=== PATIENT | female | born 1970 | race Hispanic/Latino ===

== ENCOUNTER 2017-06-24 14:44 | Emergency (ER) | payer MEDICAID, OTHER ==
[~2017-06-24 14:44] MED LIST: METR500T PO
== END 2017-06-24 15:44 | disposition home or self-care (01) ==
LOC: EDH 14:44
DX: J30.9 Allergic rhinitis, unspecified (principal); J02.9 Acute pharyngitis, unspecified

== ENCOUNTER 2017-10-10 13:19 | Emergency (ER) | payer MEDICAID, OTHER | END 2017-10-10 14:26 | disposition home or self-care (01) | LOC: EDH 13:19 | DX: L02.211 Cutaneous abscess of abdominal wall (principal); Z98.51 Tubal ligation status ==

== ENCOUNTER 2021-07-07 21:02 | Emergency (ER) | payer MEDICAID, OTHER ==
[2021-07-07 21:06] VITALS: BP 142/92
[2021-07-07] MEDS ORDERED: MECLIZINE HCL 25 MG TABLET PO ONE (21:30)
[2021-07-07 21:59] LABS: APPEARANCE,URINE CLEAR (CLEAR); BILIRUBIN,URINE NEGATIVE (NEGATIVE); COLOR,URINE STRAW (YELLOW); GLUCOSE, URINE (UA) NEGATIVE (NEGATIVE); KETONES,URINE NEGATIVE (NEGATIVE); LEUKOCYTE ESTERASE ,URINE TRACE (NEGATIVE); NITRATE,URINE NEGATIVE (NEGATIVE); OCCULT BLOOD,URINE NEGATIVE (NEGATIVE); PROTEIN,URINE NEGATIVE (NEGATIVE); UROBILINOGEN,URINE 0.2 mg/dL (0.2-1.0)
[2021-07-07 22:01] LABS: BASOPHILS % (AUTO) 0.9 % (0.0-5.0); EOSINOPHILS % (AUTO) 2.7 % (0.0-8.0); HEMATOCRIT 37.7 % (36-48); LYMPHOCYTES % (AUTO) 24.9 % (21.0-51.0); MEAN CORPUSCULAR HEMOGLOBIN 32.3 pg (27.0-33.0); MEAN CORPUSCULAR VOLUME 95.2 fL (79-99); MONOCYTES % (AUTO) 7.4 % (3.0-13.0); NEUTROPHILS % (AUTO) 63.8 % (40.0-77.0); PLATELET COUNT (AUTO) 231 K/uL (130-400); RED BLOOD CELL COUNT(AUTO) 3.96 MIL/uL (4.00-5.50); RED CELL DISTRIBUTION WIDTH 12.6 % (11.0-15.5); WHITE BLOOD COUNT (AUTO) 7.8 K/uL (4.8-10.8)
[2021-07-07 22:02] LABS: HCG,QUAL RESULT NEGATIVE (NEGATIVE)
[2021-07-07 22:06] LABS: BACTERIA,URINE Rare /HPF (None Seen); RBC,URINE 0-1 /HPF (0-1); SQUAMOUS EPITHELIAL CELL,UR Rare /HPF (0-2); WBC,URINE 0-1 /HPF (0-1)
[2021-07-07 22:25] LABS: CREATININE 0.8 mg/dL (0.5-1.5); POTASSIUM 3.8 mmol/L (3.5-5.1)
[2021-07-07 22:30] LABS: BILIRUBIN,TOTAL 0.3 mg/dL (0.2-1.0); TOTAL PROTEIN, SERUM 8.2 g/dL (6.0-8.3)
[2021-07-07] MEDS ORDERED: MECL-226 PO (22:49)
== END 2021-07-07 23:00 | disposition home or self-care (01) ==
LOC: EDH 21:02
DX: B34.9 Viral infection, unspecified (principal); R42 Dizziness and giddiness; Z90.49 Acquired absence of other specified parts of digestive tract
CPT/HCPCS: 36415; 71045; 80053; 81001; 81025; 84484; 85025

== ENCOUNTER 2021-07-13 14:45 | Emergency (ER) | payer OTHER ==
[~2021-07-13] VITALS: Ht 160 cm; Wt 49.9 kg
[~2021-07-13 14:45] MED LIST changes: +MECL-226 PO
[2021-07-13] MEDS ORDERED: LACTATED RINGERS 1000ML 2,000 ML IV ONE (15:00)
[2021-07-13] MEDS ORDERED: LACTATED RINGERS 1000ML 1,000 ML IV ONE ×2 (15:00→15:30)
[2021-07-13] MEDS ORDERED: MECLIZINE HCL 25 MG TABLET ONE (15:00)
[2021-07-13] MEDS ORDERED: MECLIZINE HCL 25 MG TABLET PO ONE (15:00)
[2021-07-13 15:14] LABS: EOSINOPHILS % (AUTO) 2.8 % (0.0-8.0); HEMATOCRIT 44.3 % (36-48); LYMPHOCYTES % (AUTO) 32.7 % (21.0-51.0); MEAN CORPUSCULAR HEMOGLOBIN 31.9 pg (27.0-33.0); MEAN CORPUSCULAR HGB CONC 33.4 g/dL (32.0-36.0); MEAN CORPUSCULAR VOLUME 95.5 fL (79-99); MONOCYTES % (AUTO) 8.7 % (3.0-13.0); NEUTROPHILS % (AUTO) 54.4 % (40.0-77.0); PLATELET COUNT (AUTO) 288 K/uL (130-400); RED BLOOD CELL COUNT(AUTO) 4.64 MIL/uL (4.00-5.50); RED CELL DISTRIBUTION WIDTH 12.5 % (11.0-15.5)
[2021-07-13 15:21] LABS: APPEARANCE,URINE Clear (CLEAR); BILIRUBIN,URINE Negative (NEGATIVE); COLOR,URINE Yellow (YELLOW); GLUCOSE, URINE (UA) Negative (NEGATIVE); KETONES,URINE Negative (NEGATIVE); LEUKOCYTE ESTERASE ,URINE Negative (NEGATIVE); NITRATE,URINE Negative (NEGATIVE); OCCULT BLOOD,URINE Negative (NEGATIVE); PROTEIN,URINE Negative (NEGATIVE); UROBILINOGEN,URINE 0.2 mg/dL (0.2-1.0)
[2021-07-13 15:33] LABS: CREATININE 0.8 mg/dL (0.5-1.5); POTASSIUM 4.1 mmol/L (3.5-5.1)
[2021-07-13 15:43] LABS: ALBUMIN 4.5 g/dL (3.5-5.0); BILIRUBIN,TOTAL 0.4 mg/dL (0.2-1.0); TOTAL PROTEIN, SERUM 9.4 g/dL (6.0-8.3)
[2021-07-13 16:23] VITALS: BP 114/71
[2021-07-13] MEDS ORDERED: MECL-226 PO (17:02)
== END 2021-07-13 17:16 | disposition home or self-care (01) ==
LOC: EDH 14:45
DX: I95.1 Orthostatic hypotension (principal); R42 Dizziness and giddiness; Z90.49 Acquired absence of other specified parts of digestive tract
CPT/HCPCS: 36415; 80053; 81003; 81025; 84484; 85025; 93005; 96360; 99284; J7120

== ENCOUNTER 2021-11-06 05:19 | Emergency (ER) | payer MEDICAID, OTHER ==
[~2021-11-06] VITALS: Ht 152.4 cm; Wt 48.5 kg
[2021-11-06 06:00] LABS: APPEARANCE,URINE CLEAR (CLEAR); BILIRUBIN,URINE NEGATIVE (NEGATIVE); COLOR,URINE YELLOW (YELLOW); GLUCOSE, URINE (UA) NEGATIVE (NEGATIVE); KETONES,URINE NEGATIVE (NEGATIVE); LEUKOCYTE ESTERASE ,URINE NEGATIVE (NEGATIVE); NITRATE,URINE NEGATIVE (NEGATIVE); OCCULT BLOOD,URINE TRACE-INTACT (NEGATIVE); PROTEIN,URINE NEGATIVE (NEGATIVE); UROBILINOGEN,URINE 0.2 mg/dL (0.2-1.0)
[2021-11-06 06:06] LABS: BACTERIA,URINE Rare /HPF (None Seen); RBC,URINE 0-1 /HPF (0-1); WBC,URINE None Seen /HPF (0-1)
[2021-11-06 06:07] LABS: SQUAMOUS EPITHELIAL CELL,UR None Seen /HPF (0-2)
[2021-11-06] MEDS ORDERED: IBUP-2070 PO (06:33)
[2021-11-06 06:44] VITALS: BP 134/74
[2021-11-06] MEDS ORDERED: KETOROLAC 15MG/ML VIAL (15MG/ML) IV ONE (07:00)
== END 2021-11-06 06:55 | disposition home or self-care (01) ==
LOC: EDH 05:19
DX: B34.9 Viral infection, unspecified (principal); R50.9 Fever, unspecified; Z20.822 Contact with and (suspected) exposure to COVID-19; Z90.89 Acquired absence of other organs; Z79.899 Other long term (current) drug therapy
CPT/HCPCS: 81001; 87635; 87804 ×2; 99283; C9803

== ENCOUNTER 2023-04-09 19:50 | Emergency (ER) | payer MEDICAID, OTHER ==
[~2023-04-09] VITALS: Ht 160 cm; Wt 49.4 kg
[~2023-04-09 19:50] MED LIST changes: +IBUP-2070 PO
[2023-04-09 20:46] LABS: SARS-CoV-2, RNA, NAAT POSITIVE SARS CoV-2 (NEGATIVE)
[2023-04-09] MEDS ORDERED: PRED20TA3 PO (20:48)
[2023-04-09] MEDS ORDERED: IBUP-1493 PO (20:48)
[2023-04-09 20:55] LABS: INFLUENZA TYPE A Negative For Type A (NEGATIVE); INFLUENZA TYPE B Negative For Type B (NEGATIVE)
[2023-04-09 21:02] VITALS: BP 142/78; PULSE 78; RESP 18; O2SAT 97
== END 2023-04-09 21:20 | disposition home or self-care (01) ==
LOC: EDH 19:50
DX: U07.1 COVID-19 (principal); Z79.899 Other long term (current) drug therapy; Z90.49 Acquired absence of other specified parts of digestive tract
CPT/HCPCS: 99283; 87635; 87804 ×2; C9803

== ENCOUNTER 2023-04-19 19:27 | Emergency (ER) | payer OTHER ==
[~2023-04-19 19:27] MED LIST changes: +IBUP-1493 PO; -IBUP-2070 PO; -MECL-226 PO; -METR500T PO; +PRED20TA3 PO
[2023-04-19] MEDS ORDERED: METOCLOPRAMIDE 10 MG/2 ML VIAL IVP ONE (20:00)
[2023-04-19] MEDS ORDERED: LACTATED RINGERS 1000ML 1,000 ML IV ONE (20:00)
[2023-04-19] MEDS ORDERED: ALBUTEROL 0.083% 2.5 MG/3 ML INH IH ONE (20:00)
[2023-04-19] MEDS ORDERED: DEXAMETHASONE SOD PHOSPHATE 4 MG/ML 1ML VIAL IV ONE (20:00)
[2023-04-19] MEDS ORDERED: FAMOTIDINE 20MG VIAL IV ONE (20:00)
[2023-04-19] MEDS ORDERED: KETOROLAC 30MG VIAL (30MG/ML) IVP ONE (20:00)
[2023-04-19 20:32] VITALS: PULSE 85; RESP 18
[2023-04-20] MEDS ORDERED: BENZ-39 PO
[2023-04-20] MEDS ORDERED: AUD IH
[2023-04-20 00:17] VITALS: BP 131/79; PULSE 93; RESP 16; O2SAT 97
== END 2023-04-20 00:20 | disposition home or self-care (01) ==
LOC: EDH 19:27
DX: U07.1 COVID-19 (principal); Z79.899 Other long term (current) drug therapy
CPT/HCPCS: 99284; 96374; 96375; 96361; 94640; J1100; J7120; J3490; J1885; J2765

== ENCOUNTER 2023-04-22 20:01 | Emergency (ER) | payer OTHER ==
[~2023-04-22] VITALS: Ht 160 cm; Wt 48.5 kg
[~2023-04-22 20:01] MED LIST changes: +AUD IH; +BENZ-39 PO
[2023-04-22 22:05] LABS: ADD UA MICROSCOPIC YES; APPEARANCE,URINE CLEAR (CLEAR); BILIRUBIN,URINE NEGATIVE (NEGATIVE); COLOR,URINE LIGHT-YELLOW (YELLOW); GLUCOSE, URINE (UA) NEGATIVE (NEGATIVE); KETONES,URINE 5 mg/dL (NEGATIVE); LEUKOCYTE ESTERASE ,URINE 250 Leu/uL (NEGATIVE); NITRATE,URINE NEGATIVE (NEGATIVE); OCCULT BLOOD,URINE NEGATIVE (NEGATIVE); PROTEIN,URINE NEGATIVE (NEGATIVE); UROBILINOGEN,URINE 0.2 mg/dL (0.2-1.0)
[2023-04-22 22:09] LABS: BACTERIA,URINE RARE /HPF (None Seen); MUCUS,URINE RARE LPF (None Seen); SQUAMOUS EPITHELIAL CELL,UR RARE /HPF (0-2); UNCLASSIFIED CRYSTAL 1 /HPF (None Seen); WBC,URINE 26-50 /HPF (0-1)
[2023-04-22] MEDS ORDERED: CEPH500T PO (23:21)
[2023-04-22] MEDS ORDERED: PHEN-847 PO (23:21)
[2023-04-22 23:52] VITALS: BP 137/90; PULSE 84; RESP 18; O2SAT 98
== END 2023-04-23 00:16 | disposition home or self-care (01) ==
LOC: EDH 20:01
DX: N39.0 Urinary tract infection, site not specified (principal); Z79.899 Other long term (current) drug therapy; Z90.49 Acquired absence of other specified parts of digestive tract
CPT/HCPCS: 81001; 87088

== ENCOUNTER 2023-04-26 18:08 | Emergency (ER) | payer OTHER ==
[~2023-04-26] VITALS: Ht 160 cm; Wt 48.1 kg
[~2023-04-26 18:08] MED LIST changes: +CEPH500T PO; +PHEN-847 PO
[2023-04-26 21:34] LABS: BASOPHILS # (AUTO) 0.08 K/uL (0.00-0.20); BASOPHILS % (AUTO) 0.8 % (0.0-5.0); EOSINOPHILS # (AUTO) 0.29 K/uL (0.00-0.70); EOSINOPHILS % (AUTO) 2.8 % (0.0-8.0); HEMATOCRIT 40.4 % (36-48); IMMATURE GRANULOCYTE ABSOLUTE 0.03 K/uL (0-1); LYMPHOCYTES # (AUTO) 3.4 K/uL (1.0-4.8); LYMPHOCYTES % (AUTO) 32.8 % (21.0-51.0); MEAN CORPUSCULAR HEMOGLOBIN 32.1 pg (27.0-33.0); MEAN CORPUSCULAR HGB CONC 34.2 g/dL (32.0-36.0); MONOCYTES # (AUTO) 0.8 K/uL (0.1-1.0); MONOCYTES % (AUTO) 7.6 % (3.0-13.0); NEUTROPHILS # (AUTO) 5.8 K/uL (1.8-7.7); NEUTROPHILS % (AUTO) 55.7 % (40.0-77.0); PLATELET COUNT (AUTO) 351 K/uL (130-400); RED CELL DISTRIBUTION WIDTH 12.5 % (11.0-15.5); WHITE BLOOD COUNT (AUTO) 10.5 K/uL (4.8-10.8)
[2023-04-26 21:45] LABS: CREATININE 0.8 mg/dL (0.5-1.5)
[2023-04-26 21:50] LABS: ALBUMIN 4.2 g/dL (3.5-5.0); BILIRUBIN,TOTAL 0.4 mg/dL (0.2-1.0)
[2023-04-26 23:25] VITALS: BP 135/85; PULSE 79; RESP 18; O2SAT 99
[2023-04-26] MEDS ORDERED: PANT20TA PO (23:34)
[2023-04-27] MEDS ORDERED: LIDOCAINE HCL 2% VISCOUS 15 ML UDCUP PO ONE
[2023-04-27] MEDS ORDERED: MAG/ALUM/SIMETH 30 ML UDCUP PO ONE
== END 2023-04-26 23:55 | disposition home or self-care (01) ==
LOC: EDH 18:08
DX: K29.70 Gastritis, unspecified, without bleeding (principal); Z87.440 Personal history of urinary (tract) infections; Z90.49 Acquired absence of other specified parts of digestive tract; Z79.899 Other long term (current) drug therapy
CPT/HCPCS: 36415; 80053; 83690; 85025

== ENCOUNTER 2023-08-29 23:28 | Emergency (ER) | payer OTHER ==
[~2023-08-29] VITALS: Ht 160 cm; Wt 48.5 kg
[~2023-08-29 23:28] MED LIST changes: +PANT20TA PO
[2023-08-29 23:44] LABS: BASOPHILS # (AUTO) 0.04 K/uL (0.00-0.20); BASOPHILS % (AUTO) 0.4 % (0.0-5.0); EOSINOPHILS # (AUTO) 0.04 K/uL (0.00-0.70); EOSINOPHILS % (AUTO) 0.4 % (0.0-8.0); HEMATOCRIT 35.4 % (36-48); IMMATURE GRANULOCYTE ABSOLUTE 0.02 K/uL (0-1); LYMPHOCYTES # (AUTO) 0.6 K/uL (1.0-4.8); LYMPHOCYTES % (AUTO) 6.1 % (21.0-51.0); MEAN CORPUSCULAR HEMOGLOBIN 31.9 pg (27.0-33.0); MEAN CORPUSCULAR HGB CONC 33.9 g/dL (32.0-36.0); MEAN CORPUSCULAR VOLUME 94.1 fL (79-99); MONOCYTES # (AUTO) 0.8 K/uL (0.1-1.0); MONOCYTES % (AUTO) 8.2 % (3.0-13.0); NEUTROPHILS % (AUTO) 84.7 % (40.0-77.0); PLATELET COUNT (AUTO) 225 K/uL (130-400); RED BLOOD CELL COUNT(AUTO) 3.76 MIL/uL (4.00-5.50); RED CELL DISTRIBUTION WIDTH 13.1 % (11.0-15.5); WHITE BLOOD COUNT (AUTO) 9.5 K/uL (4.8-10.8)
[2023-08-29] MEDS: ACETAMINOPHEN 500 MG TABLET PO ONE (23:53)
[2023-08-30 00:17] LABS: CREATININE 0.9 mg/dL (0.5-1.0); POTASSIUM 3.5 mmol/L (3.5-5.1)
[2023-08-30 00:21] LABS: ALBUMIN 3.9 g/dL (3.5-5.0); BILIRUBIN,TOTAL 0.3 mg/dL (0.2-1.0)
[2023-08-30 00:29] LABS: APPEARANCE,URINE CLEAR (CLEAR); BILIRUBIN,URINE NEGATIVE (NEGATIVE); COLOR,URINE COLORLESS (YELLOW); GLUCOSE, URINE (UA) NEGATIVE (NEGATIVE); KETONES,URINE 5 mg/dL (NEGATIVE); LEUKOCYTE ESTERASE ,URINE NEGATIVE Leu/uL (NEGATIVE); NITRATE,URINE NEGATIVE (NEGATIVE); OCCULT BLOOD,URINE NEGATIVE (NEGATIVE); PROTEIN,URINE NEGATIVE (NEGATIVE); UROBILINOGEN,URINE 0.2 mg/dL (0.2-1.0)
[2023-08-30 00:31] LABS: ADD UA MICROSCOPIC YES; HCG,QUALITATIVE URINE NEGATIVE (NEGATIVE); SQUAMOUS EPITHELIAL CELL,UR RARE /HPF (0-2); WBC,URINE 0-1 /HPF (0-1)
[2023-08-30 00:35] VITALS: BP 101/61; PULSE 77; RESP 20; O2SAT 97
[2023-08-30 00:44] LABS: SARS-CoV-2, RNA, NAAT NEGATIVE SARS CoV-2 (NEGATIVE)
[2023-08-30 00:48] LABS: INFLUENZA TYPE A Negative For Type A (NEGATIVE); INFLUENZA TYPE B Negative For Type B (NEGATIVE)
[2023-08-30 01:31] VITALS: TEMP 99
== END 2023-08-30 01:31 | disposition home or self-care (01) ==
LOC: EDH 23:28
DX: B34.9 Viral infection, unspecified (principal); Z90.89 Acquired absence of other organs; Z20.822 Contact with and (suspected) exposure to COVID-19
CPT/HCPCS: 36415; 80053; 81001; 81025; 83605; 85025; 87635; 87804

== ENCOUNTER 2023-09-16 20:12 | Emergency (ER) | payer OTHER ==
[~2023-09-16] VITALS: Ht 160 cm; Wt 48.5 kg
[2023-09-16] MEDS: ACETAMINOPHEN 500 MG TABLET PO ONE (21:00)
[2023-09-16] MEDS ORDERED: BENZ-39 PO (21:25)
[2023-09-16 21:30] VITALS: BP 122/67; PULSE 70; RESP 18; O2SAT 100
== END 2023-09-16 21:39 | disposition home or self-care (01) ==
LOC: EDH 20:12
DX: M94.0 Chondrocostal junction syndrome [Tietze] (principal); R05.9 Cough, unspecified; Z79.1 Long term (current) use of non-steroidal anti-inflammatories (NSAID); Z90.49 Acquired absence of other specified parts of digestive tract
CPT/HCPCS: 71045